=== PATIENT | male | born 1985 | race Caucasian/White ===

== ENCOUNTER 2018-07-07 07:17 | Emergency (ER) | payer MEDICAID, OTHER ==
[~2018-07-07] VITALS: Ht 177.8 cm; Wt 83.9 kg
[2018-07-07 07:29] VITALS: BP 140/89
[2018-07-07] MEDS ORDERED: DEXAMETHASONE SOD PHOS 10MG/1ML VIAL INJ IM ONE (07:45)
[2018-07-07] MEDS ORDERED: KETOROLAC TROMETH 60MG/2ML VIAL IM ONE (07:45)
== END 2018-07-07 08:22 | disposition home or self-care (01) ==
LOC: ER 07:24
DX: G25.81 Restless legs syndrome (principal); F15.20 Other stimulant dependence, uncomplicated; F17.210 Nicotine dependence, cigarettes, uncomplicated
CPT/HCPCS: 96372; 99283; J1100; J1885

== ENCOUNTER 2022-08-03 16:46 | Emergency (ER) | payer MEDICAID ==
[~2022-08-03] VITALS: Ht 175.3 cm; Wt 94.1 kg
[2022-08-04] MEDS ORDERED: DexAMETHasone SOD PHOS 10MG/1ML VIAL INJ IM ONE (11:15)
[2022-08-04] MEDS ORDERED: KETOROLAC TROMETH 60MG/2ML VIAL IM ONE (11:15)
[2022-08-04] MEDS ORDERED: PHENSUP38 PR (11:29)
[2022-08-04] MEDS ORDERED: IBUP800T26 PO (11:29)
[2022-08-04] MEDS ORDERED: HYDR-4902 PO (11:29)
[2022-08-04 12:07] VITALS: BP 134/72
== END 2022-08-04 12:13 | disposition home or self-care (01) ==
LOC: ER 16:51
DX: S39.012A Strain of muscle, fascia and tendon of lower back, initial encounter (principal); K64.9 Unspecified hemorrhoids; F17.210 Nicotine dependence, cigarettes, uncomplicated; X58.XXXA Exposure to other specified factors, initial encounter; Y93.89 Activity, other specified; Y92.89 Other specified places as the place of occurrence of the external cause; Y99.8 Other external cause status
CPT/HCPCS: 96372; 99284; J1100; J1885